=== PATIENT | female | born 2000 | race Hispanic/Latino ===

== ENCOUNTER 2021-05-28 01:51 | Inpatient (IN) | payer OTHER ==
--- OUTSIDE RECORDS SUMMARY | 2021-05-28 01:55 | XMS REPORT | Continuity of Care Document ---
:2001 Author Organization [facility] t Address [address] [place] [address] Care Team Providers Name Role Phone Marifer Perdomo MD Attending Clinician Lab, Adc Fam Pob I Attending Clinician Unavailable Larry MISHRA, F Attending Clinician A[place]ipe WHCNP, C Attending Clinician Cassandra MISHRA Attending Clinician Conor MISHRA Admitting Clinician Larry MISHRA, F Admitting Clinician Cassandra MISHRA Admitting Clinician Problems This patient has no known problems. Allergies, Adverse Reactions, Alerts This patient has no known allergies or adverse reactions. Medications This patient has no known medications. Procedures This patient has no known procedures. Encounters Start End Encounter Admission Attending Care Care Encounter Source Date/Time Date/Time Type Type Clinicians Facility Department ID 2021-01-26 2021-01-26 [facility] Marifer Perdomo [facility] [id number] 15:51:00 17:40:00 Encounter Anton[place] [id number] [place] [id number] [place] [id number] 2020-10-04 2020-10-04 [id number] 2020-09-17 2020-09-17 [facility] [id number]00 [facility] - [facility] l Outpati [facility] 2020-09-15 2020-09-15 Laboratory Lab, [facility] [id number] 18:14:38 18:34:38 Only [facility] [id number] [place] [id number] [facility] [id number] [address] 2020-09-13 2020-09-13 [facility] [id number] [facility]00 [facility] - [facility] ent [facility] 2020-07-20 2020-07-22 [facility] Larry CANDIDO [id number] 06:24:00 12:34:00 Encounter Roverto HERRERA [id number]686 [id number] 2020-07-22 2020-07-22 Telephone Akinsipe, [facility] [id number] 00:00:00 00:00:00 Brittany C COMPOSING ROOM MACHINIST [id number] [facility] [id number] MATERNAL [id number] & CHILD 107 [facility] 2020-07-19 2020-07-19 Routine Akinsipe, [facility] [id number] 12:55:44 13:29:19 Brittany C COMPOSING ROOM MACHINIST [id number] Visit REGIONAL [id number] MATERNAL [id number] & CHILD 107 [facility] 2020-07-12 2020-07-12 Routine Akinsipe, [facility] [id number] 13:08:32 13:23:32 Brittany C COMPOSING ROOM MACHINIST [id number] Visit REGIONAL [id number] MATERNAL [id number] & CHILD 107 [facility] 2020-07-05 2020-07-05 Routine Akinsipe, [facility] [id number] 13:01:59 13:50:14 Brittany C COMPOSING ROOM MACHINIST [id number] Visit REGIONAL [id number] MATERNAL [id number] & CHILD 107 [facility] 2020-06-28 2020-06-28 Routine Akinsipe, [facility] [id number] 12:46:42 13:35:27 Brittany C COMPOSING ROOM MACHINIST [id number] Visit REGIONAL [id number] MATERNAL [id number] & CHILD 107 [facility] 2020-06-13 2020-06-13 [facility] [id number] 00:00:00 00:00:00 Brittany C COMPOSING ROOM MACHINIST [id number] REGIONAL 4.2.7.2.686 MATERNAL [id number] & CHILD 107 [facility] 2020-06-04 2020-06-04 [facility] [id number] 12:57:00 13:42:08 Brittany C COMPOSING ROOM MACHINIST [id number] Visit REGIONAL [id number] MATERNAL [id number] & CHILD 107 [facility] 2020-06-01 2020-06-02 [facility] [id number] 22:23:00 00:08:00 Encounter Ken Chen [id number] [place] 4.2.7.2.686 [place] [id number] 2020-05-21 2020-05-21 [facility], [facility] [id number] 11:14:13 14:39:41 Brittany C COMPOSING ROOM MACHINIST [id number] Visit REGIONAL [id number] MATERNAL [id number] & CHILD 107 [facility] Results This patient has no known results.
[2021-05-28] MEDS ORDERED: CARBOPROST TROME 250 MCG/ML IM PRN (03:48)
[2021-05-28] MEDS ORDERED: PENICILLIN 5 MU in NA CHLORIDE 0.9% 100 ML IV ONE (03:48)
[2021-05-28] MEDS ORDERED: Ringers Lactate 1,000 ML IV PRN (03:48)
[2021-05-28] MEDS ORDERED: BUTORPHANOL 1 MG/ML INJ IV PRN (03:48)
[2021-05-28] MEDS ORDERED: METHYLERGONOVINE 0.2MG/ML AMP IM PRN (03:48)
[2021-05-28] MEDS ORDERED: PROMETHAZINE INJ 25 MG/ML AMP IM PRN (03:48)
[2021-05-28] MEDS ORDERED: Ringers Lactate 1,000 ML IV SCH (04:00)
[2021-05-28] MEDS ORDERED: OXYTOCIN/LR 1,000 ML IV SCH (04:00)
[2021-05-28] MEDS ORDERED: PENICILLIN G POT 5 MU/VIAL IV ONE (04:22)
[2021-05-28] MEDS ORDERED: NA CHLORIDE 0.9% 100 ML ONE (04:23)
[2021-05-28 04:41] VITALS: BMI 35.9
[2021-05-28 04:41] LABS: Absolute Lymphocytes (CBC) 2.5 K/uL (0.7-4.9); Basophils % 0.5 % (0-1.3); Hematocrit 35.9 % (36.0-45.0); Lymphocytes % 21.9 % (15.3-44.8); MPV 10.2 fL (7.6-11.3); RBC Red Blood Cell Count 4.32 M/uL (3.86-4.86)
[2021-05-28] MEDS ORDERED: OXYTOCIN/LR 20 UNIT/1,000 ML BAG IV SCH ×2 (05:40→13:00)
[2021-05-28] MEDS ORDERED: OXYTOCIN/LR 20 UNIT/1,000 ML BAG IV ONE (05:54)
[2021-05-28 07:06] LABS: Urine Appearance CLEAR (Clear); Urine Bilirubin NEGATIVE (Negative); Urine Blood NEGATIVE (Negative); Urine Color YELLOW (Yellow); Urine Glucose NEGATIVE (Negative); Urine Protein NEGATIVE (Negative); Urine Specific Gravity 1.025 (1.005-1.030); Urine Urobilinogen 0.2 mg/dL (0.2-1.0)
[2021-05-28 07:10] LABS: Urine Microscopic Reflex ORDER UMIC
[2021-05-28 07:21] LABS: Urine Bacteria 20-50 /HPF (<20); Urine Mucus LIGHT /HPF (NONE SEEN); Urine RBC <5 /HPF (NONE SEEN)
--- NOTE | 2021-05-28 08:28 | PREOPHP ---
Date of Admission: 05/28/2021 History Of Present Illness: Bernice Dennis is a 21-year-old, 2, para 1, 39 weeks and 1 day, h ad spontaneous rupture of membranes last night, was scheduled for induction this morning, came in at that point. She is shira regularly, but not really uncomfortable at this point. Vitals are al l normal. She is Rh positive, immune to rubella negative. COVID positive. Strep is on antibiotics at this point. Family History: Noncontributory. Past Medical History: Allergies: NO ALLERGIES. Medications: prior to admission. Social History: Does not smoke. Physical Examination: HEENT: Clear. Pupils equal, round, and reactive to light and accommodation. Conjunctivae well perf used. No oral, lingual, or buccal lesions. Chest and Lungs: Clear. Heart: Without murmurs, thrills, heaves, or rubs. Breasts: Without masses on previous visits. Abdomen: Term size. Extremities: Clear. Baby is vertex. Assessment And Plan: We will proceed with Pitocin augmentation and anticipate delivery sometime late r today. Full labor talk given. YVETTE/BILLY Voice ID: [id number]
[2021-05-28] MEDS ORDERED: PENICILLIN 2.5 MU in NA CHLORIDE 0.9% 100 ML IV SCH (09:00)
--- NOTE | 2021-05-28 09:13 | PN ---
Complete rupture of membranes performed, clear fluid. The patient is 3 cm, 50%, -1 station. Vertex well applied. I think the contraction pattern should increase now and intensity should increase. Th e patient is planning on natural childbirth. YVETTE/BILLY Voice ID: [id number] Report ID: [id number]
--- NOTE | 2021-05-28 11:39 | PN ---
Ms. Dennis is now 8 cm, extremely thin, about +1 station. Baby looks better on the monitor now. We will probably be complete start pushing her soon. YVETTE/BILLY Voice ID: [id number] Report ID: [id number]
[2021-05-28] MEDS ORDERED: LIDOCAINE 1% MPF 30 ML VIAL ONE (11:47)
[2021-05-28] MEDS ORDERED: miSOPROStoL 100 MCG TAB PO ONE (12:07)
[2021-05-28] MEDS ORDERED: Oxycodone HCl/Acetaminophen 1 TAB TAB PO PRN ×2 (12:16)
[2021-05-28] MEDS ORDERED: DIPHENHYDRAMINE 25 MG TAB/CAP PO PRN (12:16)
[2021-05-28] MEDS ORDERED: BISACODYL 10 MG RECTAL SUPP RC PRN (12:16)
[2021-05-28] MEDS ORDERED: DOCUSATE NA/SENNA CONC 1 TAB PO PRN (12:16)
[2021-05-28] MEDS ORDERED: ACETAMINOPHEN 500 MG TAB PO PRN (12:16)
--- NOTE | 2021-05-28 13:49 | OP ---
Surgeon: Fred Layton MD Procedure In Detail: A 21-year-old, 2, para 1, 39 weeks 1 day, came in with membranes had ru ptured. She was probably leaking a little bit because at approximately 7:30 to 8 had completely rupt ured membranes, clear fluid. The patient used Lamaze breathing techniques through the entire labor. Was beta strep positive, given 2 doses of penicillin during the labor. Second stage of about 20 min utes. Spontaneous vaginal delivery of a 7-pound 8-ounce female, Apgars 9 and 9. Small first-degree laceration repaired with 2-0 chromic under local infiltration. Schultze delivery of the placenta, wh ich was inspected and noted to be intact and normal. Moderate uterine hypotonus. A 0.2 mg of Mether gine, IV drip Pitocin, massage, and 100 mcg of Cytotec p.o. Estimated blood loss 650 mL. Pulse maribeth ined in the 80 range. Blood pressure remained normal. The patient remained stable throughout. We w ill continue the IVs until late this evening and start her on p.o. Methergine at approximately 1 o'cl ock for 6 total doses. Final Diagnoses: Term intrauterine 39 weeks 1 day, vaginal delivery, penicillin prophylaxi s, moderate uterine hypertonus. YVETTE/BILLY Voice ID: [id number] Report ID: [id number]
[2021-05-28] MEDS: METHYLERGONOVINE 0.2 MG TAB PO PRN ×3 (14:08→23:47)
[2021-05-28] MEDS: IBUPROFEN 600 MG TAB PO PRN (16:25)
[2021-05-28] MEDS ORDERED: Ringers Lactate 2,000 ML IV ONE (16:38)
[2021-05-29 02:56] LABS: RPR (Rapid Plasma Reagin) NON-REACT (NON-REACT)
[2021-05-29] MEDS: METHYLERGONOVINE 0.2 MG TAB PO PRN ×3 (04:04→12:50)
--- NOTE | 2021-05-29 08:20 | DS ---
Hospital Course: This is a 21-year-old 2, para 1, 39 weeks 1 day, delivery of a 7 pounds 8 o unces female, Apgars 9 and 9. Small first-degree laceration repaired with 2-0 chromic under local in filtration. Schultze delivery of the placenta. Moderate uterine hypotonus, 650 cc estimated blood l oss. The patient was given IV drip Pitocin, IM Methergine, 100 mcg of p.o. Cytotec for bleeding at t he time of delivery. ; afebrile, ambulating, and voiding. She says she is not dizzy when she ambulates. Last pulse was in the 70 range. Lochia is normal. She was also given 2 doses of pen icillin during the labor for positive beta strep status. She is immune to Rubella. Tdap has been of fered numerous times during the and again today. The patient states that she is going to t he restroom and not getting dizzy. She has not ambulated to prevent venous thrombophlebitis discusse d again and this has been discussed numerous times during the . The patient admits she has not been taking her vitamins for some time. She is encouraged to take either vitam ins or better iron once or twice a day for the next month or so to get her blood count back up to nor mal. Full discussion with the patient and . She will be dismissed later today. If the yoly shearer releases the baby, to return to my office in 6 weeks for followup to report any temperature e levation of 100 degrees or greater, severe pain, heavy bleeding, or any other type of abnormalities. Final Diagnoses: Term intrauterine 39 weeks 1 day, vaginal delivery, penicillin prophylaxi s, moderate uterine hypotonus, noncompliant as far as vitamin and iron treatment. NBC/MODL Voice ID: [id number] Report ID: [id number]
[2021-05-29] MEDS: IBUPROFEN 600 MG TAB PO PRN (12:51)
[2021-05-29] MEDS ORDERED: Tdap (Diph,Pertuss(Acell),Tet Vac) 0.5 ML SYR IMVAC ONE (13:07)
[2021-05-29 14:08] VITALS: BP 107/54; TEMP 97.7
[2021-05-31 04:29] LABS: HBsAG Nonreactive (Nonreactive)
== END 2021-05-29 15:20 | disposition home or self-care (01) | DRG 805 ==
LOC: 2ND-WC 01:51
PROVIDERS: ADMIT Specialist; ATTEND Specialist
PROC: 10E0XZZ Delivery of Products of Conception, External Approach (ICD-10-PCS; principal; 2021-05-28)
PROC: 0HQ9XZZ Repair Perineum Skin, External Approach (ICD-10-PCS; 2021-05-28)
DX: O70.0 First degree perineal laceration during delivery (principal); U07.1 COVID-19; Z37.0 Single live birth; O98.52 Other viral diseases complicating childbirth; O99.824 Streptococcus B carrier state complicating childbirth; O62.2 Other uterine inertia; Z3A.39 39 weeks gestation of pregnancy; Z23 Encounter for immunization; Z91.14 Patient's other noncompliance with medication regimen
CPT/HCPCS: 36415; 81003; 81015; 85025; 86592; 86901; 87077; 87086; 87088; 87186; 87340; 90471; 90715; J2210; J2540; J2590; J7120; U0003